=== PATIENT | male | born 1940 | race Caucasian/White ===

== ENCOUNTER 2017-06-05 16:02 | Inpatient (IN) | payer OTHER, MEDICAID ==
[2017-06-05] VITALS (13 sets, daily range): BP systolic 55–165; BP diastolic 27–86
[~2017-06-05] VITALS: Ht 165.1 cm; Wt 75.8 kg
[2017-06-05] MEDS ORDERED: NOREPINEPHRINE 4 MG in DEXT 5% WATER 246 ML IV ONE ×4 (16:30)
[2017-06-05 17:07] LABS: BG BASE EXCESS -4.1 mmol/L (-2.0-2.0); BG CARBOXYHEMOGLOBIN 0.2 % (0.5-1.5); BG DEOXYHEMOGLOBIN 6.7 % (0.0-5.0); BG HCO3 ACT 24.3 mmol/L (22.0-26.0); BG METHEMOGLOBIN 0.5 % (0.0-1.5); BG OXYGEN SATURATION 93.3 % (92.0-98.5); BG OXYHEMOGLOBIN 92.6 % (94.0-97.0); BG PCO2 62.8 mmHg (35.0-45.0); BG PH 7.206 (7.350-7.450); BG PO2 86.1 mmHg (75.0-100.0); BG SAMPLE SITE RIGHT FEMORAL; BG TIDAL VOLUME(mL) 500 mL; BG VENT MODE VENT - A/C; BG VENT RATE 18 set
[2017-06-05 17:10] LABS: *AMPHETAMINES SCREEN URINE NEGATIVE (NEGATIVE); *BARBITURATES SCREEN URINE NEGATIVE (NEGATIVE); *BENZODIAZEPINES SCREEN URINE NEGATIVE (NEGATIVE); *COCAINE SCREEN URINE PRESUMTIVE POSITIVE (NEGATIVE); CANNABINOID URINE SCREEN NEGATIVE (NEGATIVE); METHADONE URINE SCREEN NEGATIVE (NEGATIVE); OPIATES URINE SCREEN NEGATIVE (NEGATIVE); PHENCYCLIDINE URINE SCREEN NEGATIVE (NEGATIVE)
[2017-06-05 17:19] LABS: INR 1.3; PROTHROMBIN TIME 13.4 sec (9.4-11.6)
[2017-06-05 17:22] LABS: CARBON DIOXIDE 28 mEq/L (21-32); CHLORIDE 110 mEq/L (98-107)
[2017-06-05 17:29] LABS: TROPONIN I < 0.02 ng/mL (0.00-0.04)
[2017-06-05 17:34] LABS: HEMATOCRIT. 29.1 % (42.0-52.0); HEMOGLOBIN. 8.9 g/dL (14.0-18.0); MEAN CORPUSCULAR HEMOGLOBIN 21.9 pg (28.0-32.0); MEAN CORPUSCULAR VOLUME 71.7 fL (80.0-94.0); MEAN PLATELET VOLUME 7.4 fl (7.4-10.4); PLATELET 599 x1000/uL (130-400); RED BLOOD CELL COUNT 4.05 mill/uL (4.7-6.1); RED CELL DISTRIBUTION WIDTH 21.2 % (11.6-14.6)
[2017-06-05] MEDS ORDERED: DOPAMINE 400MG PREMIX 250 ML IV ONE (17:45)
[2017-06-05] MEDS ORDERED: MIDAZOLAM HCL 50 MG in DEXTROSE 5% WATER 40 ML IV ONE (18:00)
[2017-06-05] MEDS ORDERED: MIDAZOLAM HCL 50 MG in DEXTROSE 5% WATER 40 ML IV NR (18:15)
[2017-06-05 18:36] LABS: ATYPICAL LYMPHOCYTES 1
[2017-06-05 18:37] LABS: PLATELET ESTIMATE INCREASED
[2017-06-05] MEDS ORDERED: DOPAMINE 400MG IN DEXT 5% 250ML PREMIX IV ONE (19:30)
[2017-06-05] MEDS ORDERED: EPINEPHRINE 0.1MG/ML (1:10,000) 10ML SYR ONE (19:30)
[2017-06-05] MEDS ORDERED: SODIUM BICARBONATE 7.5% 0.9 MEQ/ML 50ML SYR IV ONE (19:30)
[2017-06-05] MEDS ORDERED: DEXT 5%/0.45% NACL 1000ML 1,000 ML IV SCH (22:00)
[2017-06-05] MEDS ORDERED: ENOXAPARIN 40MG/0.4ML SYR SUBCUT SCH (22:30)
[2017-06-05] MEDS: NOREPINEPHRINE 4 MG in DEXT 5% WATER 246 ML IV PRN (23:14)
[2017-06-05 23:47] LABS: CREATINE KINASE MB FRACTION 174.1 ng/mL (0.5-3.6); TROPONIN I 0.15 ng/mL (0.00-0.04)
[2017-06-06] VITALS (103 sets, daily range): BP systolic 49–162; BP diastolic 29–91
[2017-06-06] MEDS: DEXT 5%/LACTATED RINGERS 1,000 ML IV SCH ×2 (00:49→13:01)
[2017-06-06] MEDS ORDERED: KCL 20MEQ/100ML PREMIX 100 ML IV NR (02:00)
[2017-06-06] MEDS ORDERED: FENTANYL CITRATE/PF 500 MCG in SODIUM CHLORIDE 0.9% 40 ML IV PRN (02:00)
[2017-06-06 04:54] LABS: HEMATOCRIT. 34.5 % (42.0-52.0); HEMOGLOBIN. 10.3 g/dL (14.0-18.0); MEAN CORPUSCULAR HEMOGLOBIN 21.5 pg (28.0-32.0); MEAN CORPUSCULAR VOLUME 71.7 fL (80.0-94.0); MEAN PLATELET VOLUME 7.3 fl (7.4-10.4); PLATELET 627 x1000/uL (130-400); RED BLOOD CELL COUNT 4.81 mill/uL (4.7-6.1)
[2017-06-06] MEDS: MIDAZOLAM HCL 50 MG in DEXTROSE 5% WATER 40 ML IV PRN (05:12)
[2017-06-06 05:24] LABS: CARBON DIOXIDE 26 mEq/L (21-32); CHLORIDE 109 mEq/L (98-107); CREATINE KINASE MB FRACTION 161.1 ng/mL (0.5-3.6); TROPONIN I 0.15 ng/mL (0.00-0.04)
[2017-06-06 06:12] LABS: CREATINE KINASE 7918 IU/L (39-308)
[2017-06-06] MEDS: NOREPINEPHRINE 4 MG in DEXT 5% WATER 246 ML IV PRN (07:07)
[2017-06-06 07:30] LABS: BG CARBOXYHEMOGLOBIN 0.2 % (0.5-1.5); BG DEOXYHEMOGLOBIN 0.5 % (0.0-5.0); BG FRACTION INSPIRED OXYGEN 100; BG HCO3 ACT 20.6 mmol/L (22.0-26.0); BG METHEMOGLOBIN 0.5 % (0.0-1.5); BG OXYGEN SATURATION 99.5 % (92.0-98.5); BG OXYHEMOGLOBIN 98.8 % (94.0-97.0); BG PCO2 40.1 mmHg (35.0-45.0); BG PH 7.328 (7.350-7.450); BG PO2 253.8 mmHg (75.0-100.0); BG SAMPLE SITE RIGHT BRACHIAL; BG TIDAL VOLUME(mL) 500 mL; BG TOTAL HEMOGLOBIN 11.3 g/dL (12.0-18.0); BG VENT MODE VENT - A/C; BG VENT RATE 24 set
[2017-06-06] MEDS: IPRATROPIUM/ALBUTEROL 0.5-3(2.5)MG/3ML NEB HHN SCH ×2 (08:00→19:43)
[2017-06-06] MEDS ORDERED: SODIUM CHLORIDE 0.9% 1,000 ML IV ONE (09:15)
[2017-06-06] MEDS: PANTOPRAZOLE SODIUM 40 MG/VIAL IV SCH (09:28)
[2017-06-06] MEDS ORDERED: IPRATROPIUM/ALBUTEROL 0.5-3(2.5)MG/3ML NEB HHN PRN (09:30)
[2017-06-06] MEDS: METRONIDAZOLE 500 MG PREMIX 100 ML IV SCH ×2 (10:14→18:44)
[2017-06-06] MEDS: ACETYLCYSTEINE 200MG/ML 20% VIAL 4ML PO SCH (10:14)
[2017-06-06] MEDS: CEFEPIME 2,000 MG in DEXT 5% WATER 100 ML IV SCH (10:18)
[2017-06-06 10:24] LABS: CLARITY URINE CLOUDY (CLEAR); COLOR URINE DARK YELLOW (YELLOW); GLUCOSE URINE NEGATIVE (NEGATIVE); KETONES URINE NEGATIVE (NEGATIVE); LEUKOCYTE ESTERASE URINE TRACE (NEGATIVE); NITRITE URINE NEGATIVE (NEGATIVE); OCCULT BLOOD URINE 3+ (NEGATIVE); PROTEIN URINE 2+ (NEGATIVE); SPECIFIC GRAVITY URINE 1.023 (1.005-1.030)
[2017-06-06] MEDS ORDERED: HEPARIN 25,000 UNITS PREMIX 500 ML IV SCH (11:30)
[2017-06-06] MEDS ORDERED: SODIUM CHLORIDE 0.9% 500 ML IV ONE ×2 (12:44→15:00)
[2017-06-06] MEDS ORDERED: IOHEXOL-350 100 ML BOTTLE ONE (12:46)
[2017-06-06 13:54] LABS: TROPONIN I 0.09 ng/mL (0.00-0.04)
[2017-06-06 14:04] LABS: D-DIMER 3.32 mg/L FEU (<0.50); PARTIAL THROMBOPLASTIN TIME 30.6 sec (23.4-31.0)
[2017-06-06] MEDS ORDERED: HEPARIN 5000 UNITS/ML VIAL IV NR (14:15)
[2017-06-06] MEDS: HEPARIN 25,000 UNITS PREMIX 500 ML IV SCH (14:37)
[2017-06-06 15:00] LABS: CARCINO EMBRYONIC ANTIGEN 50.7 ng/ml; PROSTRATE SPECIFIC AG TOTAL 4.02 ng/mL (0.0-4.0)
[2017-06-06 15:04] LABS: PLATELET ESTIMATE INCREASED
[2017-06-06] MEDS ORDERED: HEPARIN BOLUS PRN aPTT <36 IV (18:00)
[2017-06-06] MEDS ORDERED: HEPARIN BOLUS PRN aPTT 37-44 IV (18:00)
[2017-06-06] MEDS: SODIUM CHLORIDE 0.9% 1,000 ML IV PRN ×2 (18:46→21:30)
[2017-06-06 19:37] LABS: TROPONIN I 0.06 ng/mL (0.00-0.04)
[2017-06-06 19:44] LABS: CREATINE KINASE MB FRACTION 96.3 ng/mL (0.5-3.6)
[2017-06-06] MEDS: NOREPINEPHRINE 8 MG in DEXT 5% WATER 242 ML IV PRN (21:58)
[2017-06-07] VITALS (94 sets, daily range): BP systolic 76–147; BP diastolic 40–79
[2017-06-07] MEDS: METRONIDAZOLE 500 MG PREMIX 100 ML IV SCH ×3 (01:09→17:06)
[2017-06-07] MEDS: SODIUM CHLORIDE 0.9% 1,000 ML IV PRN ×2 (01:10→03:08)
[2017-06-07] MEDS: IPRATROPIUM/ALBUTEROL 0.5-3(2.5)MG/3ML NEB HHN SCH ×4 (01:52→20:47)
[2017-06-07] MEDS: DEXT 5%/LACTATED RINGERS 1,000 ML IV SCH ×2 (05:04→15:52)
[2017-06-07] MEDS: ACETYLCYSTEINE 200MG/ML 20% VIAL 4ML PO SCH ×2 (08:16→20:46)
[2017-06-07] MEDS: PANTOPRAZOLE SODIUM 40 MG/VIAL IV SCH (08:16)
[2017-06-07 09:53] LABS: BG BASE EXCESS -3.5 mmol/L (-2.0-2.0); BG CARBOXYHEMOGLOBIN 0.4 % (0.5-1.5); BG DEOXYHEMOGLOBIN 2.8 % (0.0-5.0); BG FRACTION INSPIRED OXYGEN 75; BG HCO3 ACT 22.8 mmol/L (22.0-26.0); BG METHEMOGLOBIN 0.6 % (0.0-1.5); BG OXYGEN SATURATION 97.2 % (92.0-98.5); BG OXYHEMOGLOBIN 96.2 % (94.0-97.0); BG PCO2 47.7 mmHg (35.0-45.0); BG PH 7.298 (7.350-7.450); BG PO2 98.7 mmHg (75.0-100.0); BG SAMPLE SITE RIGHT BRACHIAL; BG TIDAL VOLUME(mL) 500 mL; BG TOTAL HEMOGLOBIN 8.2 g/dL (12.0-18.0); BG VENT MODE VENT - A/C; BG VENT RATE 24 set
[2017-06-07 11:05] LABS: HEMATOCRIT. 28.3 % (42.0-52.0); HEMOGLOBIN. 8.2 g/dL (14.0-18.0); MEAN CORPUSCULAR HEMOGLOBIN 21.1 pg (28.0-32.0); MEAN PLATELET VOLUME 7.6 fl (7.4-10.4); PLATELET 431 x1000/uL (130-400); RED BLOOD CELL COUNT 3.87 mill/uL (4.7-6.1); RED CELL DISTRIBUTION WIDTH 20.7 % (11.6-14.6)
[2017-06-07 11:28] LABS: AMMONIA 39 uMol/L (<32)
[2017-06-07 11:31] LABS: PLATELET ESTIMATE INCREASED
[2017-06-07] MEDS: CEFEPIME 2,000 MG in DEXT 5% WATER 100 ML IV SCH (11:33)
[2017-06-07] MEDS: ASPIRIN 81MG TABLET PO SCH (11:33)
[2017-06-07 11:46] LABS: CARBON DIOXIDE 22 mEq/L (21-32); CHLORIDE 116 mEq/L (98-107); HDL CHOLESTEROL 22 mg/dL (40-59); LDL CHOLESTEROL 24 mg/dL (5-100); T4 FREE 1.24 ng/dL (0.76-1.46)
[2017-06-07] MEDS: BUDESONIDE 0.5MG/2ML NEB HHN SCH ×2 (12:42→20:47)
[2017-06-07] MEDS: HEPARIN 25,000 UNITS PREMIX 500 ML IV SCH (17:01)
[2017-06-07] MEDS: NOREPINEPHRINE 8 MG in DEXT 5% WATER 242 ML IV PRN (19:27)
[2017-06-07] MEDS: MIDAZOLAM HCL 50 MG in DEXTROSE 5% WATER 40 ML IV PRN (22:41)
[2017-06-08] VITALS (98 sets, daily range): BP systolic 64–150; BP diastolic 37–73
[2017-06-08] MEDS: METRONIDAZOLE 500 MG PREMIX 100 ML IV SCH ×3 (01:01→17:39)
[2017-06-08] MEDS: IPRATROPIUM/ALBUTEROL 0.5-3(2.5)MG/3ML NEB HHN SCH ×4 (01:23→20:30)
[2017-06-08] MEDS: ACETYLCYSTEINE 200MG/ML 20% VIAL 4ML PO SCH ×2 (08:24→10:20)
[2017-06-08] MEDS: BUDESONIDE 0.5MG/2ML NEB HHN SCH ×2 (08:24→20:30)
[2017-06-08] MEDS: DEXT 5%/LACTATED RINGERS 1,000 ML IV SCH (08:37)
[2017-06-08] MEDS: PANTOPRAZOLE SODIUM 40 MG/VIAL IV SCH (08:56)
[2017-06-08] MEDS: ASPIRIN 81MG TABLET PO SCH (08:56)
[2017-06-08 09:00] LABS: BG CARBOXYHEMOGLOBIN 0.4 % (0.5-1.5); BG DEOXYHEMOGLOBIN 2.6 % (0.0-5.0); BG FRACTION INSPIRED OXYGEN 75; BG HCO3 ACT 24.8 mmol/L (22.0-26.0); BG METHEMOGLOBIN 0.5 % (0.0-1.5); BG OXYGEN SATURATION 97.4 % (92.0-98.5); BG OXYHEMOGLOBIN 96.5 % (94.0-97.0); BG PH 7.234 (7.350-7.450); BG PO2 98.8 mmHg (75.0-100.0); BG SAMPLE SITE LEFT RADIAL; BG TIDAL VOLUME(mL) 500 mL; BG TOTAL HEMOGLOBIN 8.8 g/dL (12.0-18.0); BG VENT MODE VENT - A/C; BG VENT RATE 24 set
[2017-06-08] MEDS: CEFEPIME 2,000 MG in DEXT 5% WATER 100 ML IV SCH (10:20)
[2017-06-08] MEDS: METHYLPREDNISOLONE SOD SUCC 40 MG/ML VIAL IV SCH ×2 (10:21→17:38)
[2017-06-08] MEDS ORDERED: ENOXAPARIN 80MG/0.8ML SYR SUBCUT SCH (12:00)
[2017-06-08] MEDS: NOREPINEPHRINE 8 MG in DEXT 5% WATER 242 ML IV PRN (15:37)
[2017-06-08] MEDS: MIDAZOLAM HCL 50 MG in DEXTROSE 5% WATER 40 ML IV PRN (15:38)
[2017-06-08] MEDS: ENOXAPARIN 80MG/0.8ML SYR SUBCUT SCH (22:16)
[2017-06-09] VITALS (96 sets, daily range): BP systolic 82–142; BP diastolic 44–67
[2017-06-09] MEDS: DEXT 5%/LACTATED RINGERS 1,000 ML IV SCH ×2 (00:05→16:42)
[2017-06-09] MEDS: METHYLPREDNISOLONE SOD SUCC 40 MG/ML VIAL IV SCH ×3 (02:01→17:50)
[2017-06-09] MEDS: METRONIDAZOLE 500 MG PREMIX 100 ML IV SCH ×3 (02:01→17:50)
[2017-06-09] MEDS: IPRATROPIUM/ALBUTEROL 0.5-3(2.5)MG/3ML NEB HHN SCH ×4 (02:01→20:06)
[2017-06-09 07:25] LABS: BG BASE EXCESS -3.3 mmol/L (-2.0-2.0); BG CARBOXYHEMOGLOBIN 0.3 % (0.5-1.5); BG DEOXYHEMOGLOBIN 1.9 % (0.0-5.0); BG FRACTION INSPIRED OXYGEN 65; BG HCO3 ACT 23.3 mmol/L (22.0-26.0); BG METHEMOGLOBIN 0.8 % (0.0-1.5); BG OXYGEN SATURATION 98.1 % (92.0-98.5); BG PCO2 51.4 mmHg (35.0-45.0); BG PH 7.274 (7.350-7.450); BG SAMPLE SITE RIGHT RADIAL; BG TIDAL VOLUME(mL) 450 mL; BG TOTAL HEMOGLOBIN 6.5 g/dL (12.0-18.0); BG VENT MODE VENT - A/C; BG VENT RATE 24 set
[2017-06-09] MEDS: BUDESONIDE 0.5MG/2ML NEB HHN SCH ×2 (08:18→20:07)
[2017-06-09] MEDS: PANTOPRAZOLE SODIUM 40 MG/VIAL IV SCH (08:48)
[2017-06-09] MEDS: ASPIRIN 81MG TABLET PO SCH (08:49)
[2017-06-09 09:17] LABS: HEMATOCRIT. 24.4 % (42.0-52.0); HEMOGLOBIN. 7.3 g/dL (14.0-18.0); MEAN CORPUSCULAR HEMOGLOBIN 21.4 pg (28.0-32.0); MEAN PLATELET VOLUME 7.4 fl (7.4-10.4); PLATELET 351 x1000/uL (130-400); RED BLOOD CELL COUNT 3.43 mill/uL (4.7-6.1); RED CELL DISTRIBUTION WIDTH 20.6 % (11.6-14.6)
[2017-06-09] MEDS: ENOXAPARIN 80MG/0.8ML SYR SUBCUT SCH ×2 (09:38→22:00)
[2017-06-09 09:41] LABS: CARBON DIOXIDE 26 mEq/L (21-32); CHLORIDE 117 mEq/L (98-107)
[2017-06-09] MEDS: CEFEPIME 2,000 MG in DEXT 5% WATER 100 ML IV SCH (10:49)
[2017-06-09] MEDS: AMPICILLIN 500 MG in SODIUM CHLORIDE 0.9% 50 ML IV SCH ×2 (12:21→19:25)
[2017-06-09] MEDS: MIDAZOLAM HCL 50 MG in DEXTROSE 5% WATER 40 ML IV PRN (20:53)
[2017-06-10] VITALS (93 sets, daily range): BP systolic 85–138; BP diastolic 39–66
[2017-06-10] MEDS: AMPICILLIN 500 MG in SODIUM CHLORIDE 0.9% 50 ML IV SCH ×5 (00:36→23:30)
[2017-06-10] MEDS: IPRATROPIUM/ALBUTEROL 0.5-3(2.5)MG/3ML NEB HHN SCH ×4 (02:34→19:52)
[2017-06-10] MEDS: METRONIDAZOLE 500 MG PREMIX 100 ML IV SCH ×3 (02:47→17:11)
[2017-06-10] MEDS: METHYLPREDNISOLONE SOD SUCC 40 MG/ML VIAL IV SCH ×3 (02:47→17:11)
[2017-06-10 08:28] LABS: HEMATOCRIT. 30.5 % (42.0-52.0); HEMOGLOBIN. 9.5 g/dL (14.0-18.0); MEAN CORPUSCULAR VOLUME 74.1 fL (80.0-94.0); MEAN PLATELET VOLUME 7.4 fl (7.4-10.4); PLATELET 339 x1000/uL (130-400); RED BLOOD CELL COUNT 4.12 mill/uL (4.7-6.1); RED CELL DISTRIBUTION WIDTH 22.8 % (11.6-14.6)
[2017-06-10 08:37] LABS: INR 1.3; PROTHROMBIN TIME 13.4 sec (9.4-11.6)
[2017-06-10 08:54] LABS: CHLORIDE 119 mEq/L (98-107)
[2017-06-10] MEDS: ASPIRIN 81MG TABLET PO SCH (09:00)
[2017-06-10 09:01] LABS: CARBON DIOXIDE 28 mEq/L (21-32); PHOSPHORUS 1.4 mg/dL (2.5-4.9)
[2017-06-10] MEDS: BUDESONIDE 0.5MG/2ML NEB HHN SCH (09:14)
[2017-06-10] MEDS: CEFEPIME 2,000 MG in DEXT 5% WATER 100 ML IV SCH (10:00)
[2017-06-10] MEDS: PANTOPRAZOLE SODIUM 40 MG/VIAL IV SCH (10:00)
[2017-06-10 10:35] LABS: BG BASE EXCESS 0.9 mmol/L (-2.0-2.0); BG CARBOXYHEMOGLOBIN 0.3 % (0.5-1.5); BG DEOXYHEMOGLOBIN 3.3 % (0.0-5.0); BG FRACTION INSPIRED OXYGEN 60; BG HCO3 ACT 27.6 mmol/L (22.0-26.0); BG METHEMOGLOBIN 0.4 % (0.0-1.5); BG OXYGEN SATURATION 96.7 % (92.0-98.5); BG PCO2 54.6 mmHg (35.0-45.0); BG PH 7.322 (7.350-7.450); BG SAMPLE SITE LEFT RADIAL; BG TIDAL VOLUME(mL) 450 mL; BG TOTAL HEMOGLOBIN 10.1 g/dL (12.0-18.0); BG VENT MODE VENT - A/C; BG VENT RATE 26 set
[2017-06-10 11:38] LABS: PLATELET ESTIMATE NORMAL
[2017-06-10] MEDS ORDERED: DEXTROSE 5% WATER 1,000 ML IV SCH (12:00)
[2017-06-10] MEDS: POTASSIUM-SODIUM PHOSPHATE POWDER PACKET PO SCH ×2 (13:09→17:12)
[2017-06-10] MEDS: ENOXAPARIN 80MG/0.8ML SYR SUBCUT SCH ×2 (13:10→20:36)
[2017-06-10] MEDS: NOREPINEPHRINE 8 MG in DEXT 5% WATER 242 ML IV PRN (20:38)
[2017-06-10] MEDS: MIDAZOLAM HCL 50 MG in DEXTROSE 5% WATER 40 ML IV PRN (20:38)
[2017-06-11] VITALS (73 sets, daily range): BP systolic 87–123; BP diastolic 43–71
[2017-06-11] MEDS: METRONIDAZOLE 500 MG PREMIX 100 ML IV SCH ×3 (02:05→18:08)
[2017-06-11] MEDS: METHYLPREDNISOLONE SOD SUCC 40 MG/ML VIAL IV SCH ×3 (02:05→20:50)
[2017-06-11] MEDS: IPRATROPIUM/ALBUTEROL 0.5-3(2.5)MG/3ML NEB HHN SCH ×3 (02:17→20:36)
[2017-06-11] MEDS: AMPICILLIN 500 MG in SODIUM CHLORIDE 0.9% 50 ML IV SCH ×3 (05:04→17:11)
[2017-06-11 05:18] LABS: HEMATOCRIT. 30.7 % (42.0-52.0); HEMOGLOBIN. 9.3 g/dL (14.0-18.0); MEAN CORPUSCULAR HEMOGLOBIN 23.1 pg (28.0-32.0); MEAN CORPUSCULAR VOLUME 75.8 fL (80.0-94.0); MEAN PLATELET VOLUME 7.9 fl (7.4-10.4); PLATELET 313 x1000/uL (130-400); RED BLOOD CELL COUNT 4.05 mill/uL (4.7-6.1); RED CELL DISTRIBUTION WIDTH 23.5 % (11.6-14.6)
[2017-06-11 05:47] LABS: CARBON DIOXIDE 30 mEq/L (21-32); CHLORIDE 115 mEq/L (98-107); PHOSPHORUS 2.4 mg/dL (2.5-4.9)
[2017-06-11 07:06] LABS: BG CARBOXYHEMOGLOBIN 0.3 % (0.5-1.5); BG DEOXYHEMOGLOBIN 4.9 % (0.0-5.0); BG FRACTION INSPIRED OXYGEN 60; BG HCO3 ACT 27.3 mmol/L (22.0-26.0); BG METHEMOGLOBIN 0.4 % (0.0-1.5); BG OXYGEN SATURATION 95.1 % (92.0-98.5); BG OXYHEMOGLOBIN 94.4 % (94.0-97.0); BG PCO2 58.4 mmHg (35.0-45.0); BG PH 7.288 (7.350-7.450); BG PO2 82.9 mmHg (75.0-100.0); BG SAMPLE SITE RIGHT RADIAL; BG TIDAL VOLUME(mL) 450 mL; BG TOTAL HEMOGLOBIN 10.2 g/dL (12.0-18.0); BG VENT MODE VENT - A/C; BG VENT RATE 26 set
[2017-06-11] MEDS: PANTOPRAZOLE SODIUM 40 MG/VIAL IV SCH (09:18)
[2017-06-11] MEDS: POTASSIUM-SODIUM PHOSPHATE POWDER PACKET PO SCH ×2 (09:19→17:10)
[2017-06-11] MEDS: ENOXAPARIN 80MG/0.8ML SYR SUBCUT SCH ×2 (09:19→20:50)
[2017-06-11] MEDS ORDERED: FENTANYL CITRATE/PF 50MCG/ML 2ML VIAL IV PRN (09:30)
[2017-06-11 10:37] LABS: PLATELET ESTIMATE NORMAL
[2017-06-11] MEDS: CEFEPIME 2,000 MG in DEXT 5% WATER 100 ML IV SCH (11:50)
[2017-06-12] VITALS (83 sets, daily range): BP systolic 90–176; BP diastolic 35–71
[2017-06-12] MEDS: AMPICILLIN 500 MG in SODIUM CHLORIDE 0.9% 50 ML IV SCH ×4 (00:36→17:15)
[2017-06-12] MEDS: METRONIDAZOLE 500 MG PREMIX 100 ML IV SCH ×3 (01:10→17:38)
[2017-06-12] MEDS: IPRATROPIUM/ALBUTEROL 0.5-3(2.5)MG/3ML NEB HHN SCH ×4 (01:41→20:29)
[2017-06-12 05:18] LABS: HEMATOCRIT. 29.3 % (42.0-52.0); MEAN CORPUSCULAR HEMOGLOBIN 23.3 pg (28.0-32.0); MEAN PLATELET VOLUME 8.1 fl (7.4-10.4); PLATELET 280 x1000/uL (130-400); RED BLOOD CELL COUNT 3.85 mill/uL (4.7-6.1); RED CELL DISTRIBUTION WIDTH 23.7 % (11.6-14.6)
[2017-06-12 05:59] LABS: CARBON DIOXIDE 31 mEq/L (21-32); CHLORIDE 116 mEq/L (98-107); PHOSPHORUS 2.3 mg/dL (2.5-4.9)
[2017-06-12 07:51] LABS: BG BASE EXCESS 0.3 mmol/L (-2.0-2.0); BG CARBOXYHEMOGLOBIN 0.3 % (0.5-1.5); BG DEOXYHEMOGLOBIN 5.4 % (0.0-5.0); BG FRACTION INSPIRED OXYGEN 60; BG HCO3 ACT 26.5 mmol/L (22.0-26.0); BG METHEMOGLOBIN 0.2 % (0.0-1.5); BG OXYGEN SATURATION 94.6 % (92.0-98.5); BG OXYHEMOGLOBIN 94.1 % (94.0-97.0); BG PCO2 50.1 mmHg (35.0-45.0); BG PH 7.342 (7.350-7.450); BG PO2 83.4 mmHg (75.0-100.0); BG SAMPLE SITE RIGHT RADIAL; BG TIDAL VOLUME(mL) 500 mL; BG TOTAL HEMOGLOBIN 11.4 g/dL (12.0-18.0); BG VENT MODE VENT - A/C; BG VENT RATE 26 set
[2017-06-12] MEDS: METHYLPREDNISOLONE SOD SUCC 40 MG/ML VIAL IV SCH ×2 (08:50→22:07)
[2017-06-12] MEDS: PANTOPRAZOLE SODIUM 40 MG/VIAL IV SCH (08:50)
[2017-06-12 08:55] LABS: AMMONIA 41 uMol/L (<32)
[2017-06-12] MEDS: ENOXAPARIN 80MG/0.8ML SYR SUBCUT SCH ×2 (08:58→22:07)
[2017-06-12] MEDS: POTASSIUM-SODIUM PHOSPHATE POWDER PACKET PO SCH ×2 (09:00→17:23)
[2017-06-12 09:14] LABS: PLATELET ESTIMATE NORMAL
[2017-06-12] MEDS: CEFEPIME 2,000 MG in DEXT 5% WATER 100 ML IV SCH (10:31)
[2017-06-12] MEDS: LACTULOSE 20G/30ML UDC NG SCH (17:19)
[2017-06-13] VITALS (51 sets, daily range): BP systolic 94–142; BP diastolic 45–68
[2017-06-13] MEDS: AMPICILLIN 500 MG in SODIUM CHLORIDE 0.9% 50 ML IV SCH ×4 (00:54→18:00)
[2017-06-13] MEDS: METRONIDAZOLE 500 MG PREMIX 100 ML IV SCH ×2 (00:54→09:49)
[2017-06-13] MEDS: IPRATROPIUM/ALBUTEROL 0.5-3(2.5)MG/3ML NEB HHN SCH ×4 (01:44→20:02)
[2017-06-13 04:46] LABS: HEMATOCRIT. 30.3 % (42.0-52.0); HEMOGLOBIN. 9.2 g/dL (14.0-18.0); MEAN CORPUSCULAR HEMOGLOBIN 23.1 pg (28.0-32.0); MEAN CORPUSCULAR VOLUME 76.4 fL (80.0-94.0); MEAN PLATELET VOLUME 8.1 fl (7.4-10.4); PLATELET 274 x1000/uL (130-400); RED BLOOD CELL COUNT 3.97 mill/uL (4.7-6.1); RED CELL DISTRIBUTION WIDTH 24.7 % (11.6-14.6)
[2017-06-13 05:05] LABS: AMMONIA 33 uMol/L (<32)
[2017-06-13 05:07] LABS: CARBON DIOXIDE 30 mEq/L (21-32); CHLORIDE 116 mEq/L (98-107); PHOSPHORUS 2.9 mg/dL (2.5-4.9)
[2017-06-13 07:10] LABS: BG BASE EXCESS 5.9 mmol/L (-2.0-2.0); BG CARBOXYHEMOGLOBIN 0.3 % (0.5-1.5); BG DEOXYHEMOGLOBIN 2.5 % (0.0-5.0); BG HCO3 ACT 31.9 mmol/L (22.0-26.0); BG METHEMOGLOBIN 0.3 % (0.0-1.5); BG OXYGEN SATURATION 97.5 % (92.0-98.5); BG OXYHEMOGLOBIN 96.9 % (94.0-97.0); BG PCO2 53.6 mmHg (35.0-45.0); BG PH 7.392 (7.350-7.450); BG PO2 101.5 mmHg (75.0-100.0); BG SAMPLE SITE RIGHT RADIAL; BG TIDAL VOLUME(mL) 500 mL; BG TOTAL HEMOGLOBIN 10.6 g/dL (12.0-18.0); BG VENT MODE VENT - A/C; BG VENT RATE 26 set
[2017-06-13] MEDS: LACTULOSE 20G/30ML UDC NG SCH (08:34)
[2017-06-13] MEDS: ENOXAPARIN 80MG/0.8ML SYR SUBCUT SCH ×2 (08:35→21:09)
[2017-06-13] MEDS: METHYLPREDNISOLONE SOD SUCC 40 MG/ML VIAL IV SCH ×2 (08:36→21:08)
[2017-06-13] MEDS: PANTOPRAZOLE SODIUM 40 MG/VIAL IV SCH (08:36)
[2017-06-13] MEDS: POTASSIUM-SODIUM PHOSPHATE POWDER PACKET PO SCH ×2 (08:51→17:59)
[2017-06-13] MEDS: CEFEPIME 2,000 MG in DEXT 5% WATER 100 ML IV SCH (11:00)
[2017-06-13 11:36] LABS: PLATELET ESTIMATE NORMAL
[2017-06-14] VITALS (76 sets, daily range): BP systolic 94–138; BP diastolic 46–72
[2017-06-14] MEDS: AMPICILLIN 500 MG in SODIUM CHLORIDE 0.9% 50 ML IV SCH ×5 (00:52→23:19)
[2017-06-14] MEDS: IPRATROPIUM/ALBUTEROL 0.5-3(2.5)MG/3ML NEB HHN SCH ×4 (01:57→20:04)
[2017-06-14] MEDS: MIDAZOLAM HCL 50 MG in DEXTROSE 5% WATER 40 ML IV PRN ×2 (02:58→19:06)
[2017-06-14 05:09] LABS: AMMONIA 37 uMol/L (<32)
[2017-06-14 05:09] LABS: HEMATOCRIT. 29.1 % (42.0-52.0); HEMOGLOBIN. 8.8 g/dL (14.0-18.0); MEAN CORPUSCULAR HEMOGLOBIN 23.1 pg (28.0-32.0); MEAN CORPUSCULAR VOLUME 76.1 fL (80.0-94.0); MEAN PLATELET VOLUME 8.2 fl (7.4-10.4); PLATELET 283 x1000/uL (130-400); RED BLOOD CELL COUNT 3.83 mill/uL (4.7-6.1); RED CELL DISTRIBUTION WIDTH 24.9 % (11.6-14.6)
[2017-06-14 05:18] LABS: CARBON DIOXIDE 34 mEq/L (21-32); CHLORIDE 117 mEq/L (98-107); PHOSPHORUS 2.8 mg/dL (2.5-4.9)
[2017-06-14 07:09] LABS: BG BASE EXCESS 5.8 mmol/L (-2.0-2.0); BG CARBOXYHEMOGLOBIN 0.3 % (0.5-1.5); BG DEOXYHEMOGLOBIN 5.5 % (0.0-5.0); BG HCO3 ACT 31.2 mmol/L (22.0-26.0); BG METHEMOGLOBIN 0.3 % (0.0-1.5); BG OXYGEN SATURATION 94.5 % (92.0-98.5); BG OXYHEMOGLOBIN 93.9 % (94.0-97.0); BG PCO2 49.5 mmHg (35.0-45.0); BG PH 7.417 (7.350-7.450); BG PO2 77.1 mmHg (75.0-100.0); BG SAMPLE SITE RIGHT RADIAL; BG TIDAL VOLUME(mL) 500 mL; BG TOTAL HEMOGLOBIN 10.3 g/dL (12.0-18.0); BG VENT MODE VENT - A/C; BG VENT RATE 26 set
[2017-06-14] MEDS: ENOXAPARIN 80MG/0.8ML SYR SUBCUT SCH ×2 (08:05→20:39)
[2017-06-14] MEDS: PANTOPRAZOLE SODIUM 40 MG/VIAL IV SCH (08:05)
[2017-06-14] MEDS: POTASSIUM-SODIUM PHOSPHATE POWDER PACKET PO SCH ×2 (08:05→17:11)
[2017-06-14] MEDS: METHYLPREDNISOLONE SOD SUCC 40 MG/ML VIAL IV SCH ×2 (08:05→20:39)
[2017-06-14] MEDS: LACTULOSE 20G/30ML UDC NG SCH (08:05)
[2017-06-14 09:27] LABS: PLATELET ESTIMATE NORMAL
[2017-06-15] VITALS (47 sets, daily range): BP systolic 98–140; BP diastolic 49–69
[2017-06-15] MEDS: MIDAZOLAM HCL 50 MG in DEXTROSE 5% WATER 40 ML IV PRN ×3 (00:29→20:27)
[2017-06-15] MEDS: IPRATROPIUM/ALBUTEROL 0.5-3(2.5)MG/3ML NEB HHN SCH ×4 (01:54→20:31)
[2017-06-15] MEDS: AMPICILLIN 500 MG in SODIUM CHLORIDE 0.9% 50 ML IV SCH ×3 (05:20→17:13)
[2017-06-15 05:28] LABS: AMMONIA 42 uMol/L (<32)
[2017-06-15] MEDS: PANTOPRAZOLE SODIUM 40 MG/VIAL IV SCH (09:32)
[2017-06-15] MEDS: LACTULOSE 20G/30ML UDC NG SCH (09:32)
[2017-06-15] MEDS: POTASSIUM-SODIUM PHOSPHATE POWDER PACKET PO SCH ×2 (09:32→17:13)
[2017-06-15] MEDS: ENOXAPARIN 80MG/0.8ML SYR SUBCUT SCH ×2 (09:34→20:25)
[2017-06-15] MEDS: DEXAMETHASONE 4MG TABLET PO SCH ×2 (12:00→17:15)
[2017-06-15] MEDS ORDERED: GADOBENATE DIMEGLUMINE 529 MG/ML 10ML IV ONE (13:16)
[2017-06-16] VITALS (48 sets, daily range): BP systolic 96–131; BP diastolic 50–66
[2017-06-16] MEDS: DEXAMETHASONE 4MG TABLET PO SCH ×4 (00:17→17:59)
[2017-06-16] MEDS: AMPICILLIN 500 MG in SODIUM CHLORIDE 0.9% 50 ML IV SCH ×3 (00:17→11:16)
[2017-06-16] MEDS: IPRATROPIUM/ALBUTEROL 0.5-3(2.5)MG/3ML NEB HHN SCH ×5 (01:28→23:52)
[2017-06-16 05:11] LABS: HEMOGLOBIN. 8.9 g/dL (14.0-18.0); MEAN CORPUSCULAR VOLUME 77.2 fL (80.0-94.0); MEAN PLATELET VOLUME 8.4 fl (7.4-10.4); PLATELET 267 x1000/uL (130-400); RED BLOOD CELL COUNT 3.88 mill/uL (4.7-6.1); RED CELL DISTRIBUTION WIDTH 25.8 % (11.6-14.6)
[2017-06-16 05:37] LABS: AMMONIA 48 uMol/L (<32)
[2017-06-16] MEDS: MIDAZOLAM HCL 50 MG in DEXTROSE 5% WATER 40 ML IV PRN (07:05)
[2017-06-16] MEDS ORDERED: BISACODYL 5MG TABLET PO PRN (09:00)
[2017-06-16] MEDS: POTASSIUM-SODIUM PHOSPHATE POWDER PACKET PO SCH ×2 (09:00→16:41)
[2017-06-16] MEDS: LACTULOSE 20G/30ML UDC NG SCH (09:12)
[2017-06-16] MEDS: PANTOPRAZOLE SODIUM 40 MG/VIAL IV SCH (09:13)
[2017-06-16] MEDS: ENOXAPARIN 80MG/0.8ML SYR SUBCUT SCH ×2 (09:13→20:15)
[2017-06-16 09:32] LABS: BG BASE EXCESS 7.7 mmol/L (-2.0-2.0); BG CARBOXYHEMOGLOBIN 0.3 % (0.5-1.5); BG DEOXYHEMOGLOBIN 2.2 % (0.0-5.0); BG HCO3 ACT 33.3 mmol/L (22.0-26.0); BG OXYGEN SATURATION 97.8 % (92.0-98.5); BG OXYHEMOGLOBIN 97.5 % (94.0-97.0); BG PCO2 52.5 mmHg (35.0-45.0); BG PO2 112.1 mmHg (75.0-100.0); BG SAMPLE SITE RIGHT RADIAL; BG TIDAL VOLUME(mL) 500 mL; BG TOTAL HEMOGLOBIN 9.9 g/dL (12.0-18.0); BG VENT MODE VENT - A/C; BG VENT RATE 26 set
[2017-06-16 10:14] LABS: INR 1.1; PROTHROMBIN TIME 11.5 sec (9.4-11.6)
[2017-06-16 10:21] LABS: CARBON DIOXIDE 30 mEq/L (21-32); CHLORIDE 118 mEq/L (98-107)
[2017-06-16 14:14] LABS: PLATELET ESTIMATE NORMAL
[2017-06-16] MEDS: MIDAZOLAM HCL 100 MG in DEXT 5% WATER 80 ML IV PRN (20:25)
[2017-06-17] VITALS (48 sets, daily range): BP systolic 99–139; BP diastolic 46–72
[2017-06-17] MEDS: DEXAMETHASONE 4MG TABLET PO SCH ×5 (00:17→23:30)
[2017-06-17 06:33] LABS: AMMONIA 63 uMol/L (<32)
[2017-06-17] MEDS ORDERED: SODIUM POLYSTYRENE SULFONATE 15 G/60 ML BOT PO NR (07:15)
[2017-06-17] MEDS: IPRATROPIUM/ALBUTEROL 0.5-3(2.5)MG/3ML NEB HHN SCH ×3 (07:44→19:39)
[2017-06-17] MEDS: DEXTROSE 5% WATER 1,000 ML IV SCH (08:00)
[2017-06-17] MEDS: POTASSIUM-SODIUM PHOSPHATE POWDER PACKET PO SCH (09:23)
[2017-06-17] MEDS: PANTOPRAZOLE SODIUM 40 MG/VIAL IV SCH (09:23)
[2017-06-17] MEDS: LACTULOSE 20G/30ML UDC NG SCH (09:23)
[2017-06-17] MEDS: ENOXAPARIN 80MG/0.8ML SYR SUBCUT SCH ×2 (09:27→20:15)
[2017-06-17] MEDS: MIDAZOLAM HCL 100 MG in DEXT 5% WATER 80 ML IV PRN (18:08)
[2017-06-18] VITALS (52 sets, daily range): BP systolic 90–121; BP diastolic 45–69
[2017-06-18] MEDS: IPRATROPIUM/ALBUTEROL 0.5-3(2.5)MG/3ML NEB HHN SCH ×4 (01:52→19:53)
[2017-06-18] MEDS: DEXTROSE 5% WATER 1,000 ML IV SCH (03:19)
[2017-06-18] MEDS: DEXAMETHASONE 4MG TABLET PO SCH ×3 (05:22→18:31)
[2017-06-18 09:03] LABS: BG CARBOXYHEMOGLOBIN 0.7 % (0.5-1.5); BG DEOXYHEMOGLOBIN 4.4 % (0.0-5.0); BG FRACTION INSPIRED OXYGEN 55; BG HCO3 ACT 34.4 mmol/L (22.0-26.0); BG METHEMOGLOBIN 0.1 % (0.0-1.5); BG OXYGEN SATURATION 95.6 % (92.0-98.5); BG OXYHEMOGLOBIN 94.8 % (94.0-97.0); BG PCO2 59.6 mmHg (35.0-45.0); BG PH 7.379 (7.350-7.450); BG PO2 84.3 mmHg (75.0-100.0); BG SAMPLE SITE LEFT RADIAL; BG TIDAL VOLUME(mL) 500 mL; BG TOTAL HEMOGLOBIN 8.8 g/dL (12.0-18.0); BG VENT MODE VENT - A/C; BG VENT RATE 20 set
[2017-06-18] MEDS: LACTULOSE 20G/30ML UDC NG SCH (09:27)
[2017-06-18] MEDS: ENOXAPARIN 80MG/0.8ML SYR SUBCUT SCH ×2 (09:27→21:11)
[2017-06-18] MEDS: PANTOPRAZOLE SODIUM 40 MG/VIAL IV SCH (09:27)
[2017-06-19] VITALS (67 sets, daily range): BP systolic 90–120; BP diastolic 45–65
[2017-06-19] MEDS: MIDAZOLAM HCL 100 MG in DEXT 5% WATER 80 ML IV PRN (00:33)
[2017-06-19] MEDS: DEXAMETHASONE 4MG TABLET PO SCH ×3 (00:40→11:56)
[2017-06-19] MEDS: DEXTROSE 5% WATER 1,000 ML IV SCH (00:41)
[2017-06-19] MEDS: IPRATROPIUM/ALBUTEROL 0.5-3(2.5)MG/3ML NEB HHN SCH (01:47)
[2017-06-19] MEDS: ENOXAPARIN 80MG/0.8ML SYR SUBCUT SCH (08:30)
[2017-06-19] MEDS: PANTOPRAZOLE SODIUM 40 MG/VIAL IV SCH (08:30)
[2017-06-19] MEDS: LACTULOSE 20G/30ML UDC NG SCH (08:30)
[2017-06-19 08:55] LABS: BG BASE EXCESS 7.5 mmol/L (-2.0-2.0); BG CARBOXYHEMOGLOBIN 0.4 % (0.5-1.5); BG DEOXYHEMOGLOBIN 3.7 % (0.0-5.0); BG FRACTION INSPIRED OXYGEN 55; BG HCO3 ACT 33.5 mmol/L (22.0-26.0); BG METHEMOGLOBIN 0.4 % (0.0-1.5); BG OXYGEN SATURATION 96.3 % (92.0-98.5); BG OXYHEMOGLOBIN 95.5 % (94.0-97.0); BG PCO2 56.2 mmHg (35.0-45.0); BG PH 7.393 (7.350-7.450); BG PO2 83.2 mmHg (75.0-100.0); BG SAMPLE SITE LEFT RADIAL; BG TIDAL VOLUME(mL) 500 mL; BG TOTAL HEMOGLOBIN 8.5 g/dL (12.0-18.0); BG VENT MODE VENT - A/C; BG VENT RATE 20 set
[2017-06-19] MEDS ORDERED: MORPHINE SULFATE 100 MG in DEXT 5% WATER 90 ML IV PRN (09:30)
== END 2017-06-19 17:25 | disposition expired | DRG 870 ==
LOC: EDBD 16:15 → ER 16:15 → MICUSO 18:29 → ENRESERV 19:25 → MICUSO 21:44
PROVIDERS: ADMIT Hospitalist; ATTEND Hospitalist
PROC: 5A1955Z Respiratory Ventilation, Greater than 96 Consecutive Hours (ICD-10-PCS; principal; 2017-06-05)
PROC: 0BH18EZ Insertion of Endotracheal Airway into Trachea, Via Natural or Artificial Opening Endoscopic (ICD-10-PCS; 2017-06-05)
PROC: 5A12012 Performance of Cardiac Output, Single, Manual (ICD-10-PCS; 2017-06-05)
PROC: 30233N1 Transfusion of Nonautologous Red Blood Cells into Peripheral Vein, Percutaneous Approach (ICD-10-PCS; 2017-06-09)
DX: A41.9 Sepsis, unspecified organism (principal); J69.0 Pneumonitis due to inhalation of food and vomit; I26.99 Other pulmonary embolism without acute cor pulmonale; I46.9 Cardiac arrest, cause unspecified; E43 Unspecified severe protein-calorie malnutrition; G82.50 Quadriplegia, unspecified; J96.02 Acute respiratory failure with hypercapnia; R65.21 Severe sepsis with septic shock; E72.20 Disorder of urea cycle metabolism, unspecified; G93.40 Encephalopathy, unspecified; E87.0 Hyperosmolality and hypernatremia; J90 Pleural effusion, not elsewhere classified; E87.1 Hypo-osmolality and hyponatremia; M62.82 Rhabdomyolysis; D68.59 Other primary thrombophilia; C79.51 Secondary malignant neoplasm of bone; I69.354 Hemiplegia and hemiparesis following cerebral infarction affecting left non-dominant side; Z99.11 Dependence on respirator [ventilator] status; D64.9 Anemia, unspecified; E11.65 Type 2 diabetes mellitus with hyperglycemia; E87.5 Hyperkalemia; E87.6 Hypokalemia; F14.10 Cocaine abuse, uncomplicated; I45.10 Unspecified right bundle-branch block; M48.02 Spinal stenosis, cervical region; Z66 Do not resuscitate; J43.9 Emphysema, unspecified; F19.10 Other psychoactive substance abuse, uncomplicated; Z68.27 Body mass index [BMI] 27.0-27.9, adult; Z86.711 Personal history of pulmonary embolism; Z87.891 Personal history of nicotine dependence
CPT/HCPCS: 31500; 36415; 36556; 36600; 70450; 70544; 70553; 71010; 71275; 72125; 72156; 76604; 76700; 80048; 80053; 80061; 80305; 81001; 82105; 82140; 82270; 82375; 82378; 82550; 82553; 82805; 82962; 83036; 83605; 83735; 83880; 84100; 84153; 84439; 84443; 84484; 85025; 85379; 85384; 85610; 85730; 86850; 86900; 86920; 87040; 87077; 87086; 87186; 93005; 93306; 93970; 93971; 94002; 94003; 94640; 99291; A9577; C9113; J0171; J0290; J0692; J1265; J1644; J1650; J2250; J2920; J3480; J3490; J7030; J7040; J7050; J7060; J7070; J7121; J7608; J7620; J7626; J8540; L0172; P9016; Q9967